=== PATIENT | female | born 1980 | race Caucasian/White ===

== ENCOUNTER 2017-05-14 21:54 | Emergency (ER) | payer SELFPAY ==
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
[2017-05-14] MEDS ORDERED: MORPHINE SULFATE 4 MG/ML DISP.SYRIN. IM ONE (23:00)
[2017-05-14] MEDS ORDERED: HYDROcodone/APAP 5/325MG 1 TAB TABLET PO ONE (23:00)
[2017-05-14] MEDS ORDERED: ONDANSETRON ODT 4 MG TAB.RAPDIS. PO ONE (23:00)
--- NOTE | 2017-05-14 23:28 | RAD ---
CT head without intravenous contrast History: Injury, pain. Comparison: None. Technique: Axial images are obtained of the head from the skull base through the vertex without IV contrast. Exposure: One or more of the following individualized dose reduction techniques were utilized for this examination: 1. Automated exposure control 2. Adjustment of the mA and/or kV according to patient size 3. Use of iterative reconstruction technique Findings: There is mild diffuse cerebral volume loss, greater than expected for patient age. No obvious intracranial mass, mass-effect, midline shift, hemorrhage or obvious acute infarction is identified. Basilar cisterns are patent. Bone windows demonstrate no acute calvarial abnormality. Impression: 1. No acute intracranial process. 2. Mild diffuse cerebral volume loss, greater than expected for patient age. CT face without contrast Technique: CT of the face was performed without intravenous contrast. Axial, sagittal, and coronal reconstructions were obtained. Exposure: One or more of the following individualized dose reduction techniques were utilized for this examination: 1. Automated exposure control 2. Adjustment of the mA and/or kV according to patient size 3. Use of iterative reconstruction technique Findings: Significantly comminuted, displaced bilateral nasal bone fractures are seen. There is also evidence of mildly comminuted, mildly displaced fracture of the nasal septum. There is mildly disconjugate gaze. Best appreciated on the coronal reconstructions, there may be nondisplaced fracture of the right orbital floor. Mildly displaced right medial orbital wall fracture is seen. No retrobulbar hemorrhage is identified. Left orbit and orbital contents appear intact. Right frontal sinus is undeveloped. Left frontal sinus demonstrates mild mucosal disease. There is opacification of several ethmoid air cells. Both maxillary sinuses demonstrate presence of hemorrhage product. There is mild mucosal thickening of the sphenoid sinus. There is a large amount of soft tissue swelling in the nasal region. There is also soft tissue gas involving the nasal region. Impression: 1. Bilateral nasal bone fractures. Fracture of the nasal septum. 2. Right medial orbital wall and orbital floor fractures. 3. Mildly disconjugate gaze. Electronically signed by: Sal Pimentel MD (05/14/2017 11:24 PM) [facility]
--- NOTE | 2017-05-14 23:30 | RAD ---
CT cervical spine History: Injury, pain. Comparison: None. Technique: Noncontrast CT of the cervical spine was performed using helical technique. Axial, sagittal, coronal reconstructions were obtained. Exposure: One or more of the following individualized dose reduction techniques were utilized for this examination: 1. Automated exposure control 2. Adjustment of the mA and/or kV according to patient size 3. Use of iterative reconstruction technique Findings: There is no evidence of acute fracture or acute malalignment involving the cervical spine. No prevertebral soft tissue swelling is identified. Impression: No evidence of acute traumatic injury involving the cervical spine. Electronically signed by: Sal Pimentel MD (05/14/2017 11:27 PM) [facility]
[2017-05-14 23:48] VITALS: BP 118/78
[2017-05-14] MEDS ORDERED: HYDR-971 PO (23:53)
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
== END 2017-05-15 00:33 | disposition home or self-care (01) ==
LOC: ER 21:54
DX: S02.2XXA Fracture of nasal bones, initial encounter for closed fracture (principal); S02.31XA Fracture of orbital floor, right side, initial encounter for closed fracture; Y04.2XXA Assault by strike against or bumped into by another person, initial encounter; Y93.89 Activity, other specified; Y99.8 Other external cause status; Y92.89 Other specified places as the place of occurrence of the external cause
CPT/HCPCS: 70450; 70486; 71010; 72125; 96372; 99284; J2270; Q0162